=== PATIENT | male | born 1985 | race African-American/Black ===

== ENCOUNTER 2018-01-03 11:31 | Emergency (ER) | payer OTHER ==
[2018-01-03] MEDS: IV NORMAL SALINE 1000ML BAG 1,000 ML IV (12:20)
[2018-01-03 12:27] LABS: ADD MAN DIFF? NO
[2018-01-03] MEDS ORDERED: IOHEXOL 300 MG/ML 100ML VIAL. IV (12:30)
[2018-01-03] MEDS: ONDANSETRON PF 4 MG/2 ML VIAL. IV ×2 (12:30→15:00)
[2018-01-03] MEDS ORDERED: CONTRAST GIVEN. MC (12:30)
[2018-01-03 12:38] LABS: BASO % 0 % (0-3); EOS # 0.1 x10^3/uL (0.0-0.7); EOS % 1 % (0-3); HEMATOCRIT 45.6 % (39.0-53.0); HEMOGLOBIN 15.8 g/dL (13.0-17.5); LYMPH # 2.8 x10^3/uL (1.0-4.8); LYMPH % 31 % (24-48); MEAN CORPUSCULAR HEMOGLOBIN 31 pg (25-35); MEAN CORPUSCULAR HGB CONC 35 g/dL (31-37); MEAN CORPUSCULAR VOLUME 91 fL (79-100); MONO # 0.8 x10^3/uL (0.0-1.1); MONO % 9 % (0-9); NEUT # 5.4 x10^3uL (1.8-7.7); NEUT % 59 % (31-73); PLATELET COUNT 256 x10^3/uL (140-400); RED BLOOD COUNT 5.02 x10^6/uL (4.30-5.70); RED CELL DISTRIBUTION WIDTH 13.9 % (11.5-14.5); WHITE BLOOD COUNT 9.2 x10^3/uL (4.0-11.0)
[2018-01-03 12:43] LABS: ANION GAP 9 (6-14); BLOOD UREA NITROGEN 15 mg/dL (8-26); BUN/CREATININE RATIO 14 (6-20); CALCIUM 9.3 mg/dL (8.5-10.1); CARBON DIOXIDE 29 mmol/L (21-32); CHLORIDE 104 mmol/L (98-107); CREATININE 1.1 mg/dL (0.7-1.3); GFR 94.5; GLUCOSE 99 mg/dL (70-99); POTASSIUM 3.2 mmol/L (3.5-5.1); SODIUM 142 mmol/L (136-145)
[2018-01-03 12:51] LABS: ALK PHOS 56 U/L (46-116); ALT (SGPT) 37 U/L (16-63); AST (SGOT) 15 U/L (15-37); LIPASE 275 U/L (73-393); TOTAL BILIRUBIN 0.2 mg/dL (0.2-1.0)
[2018-01-03 12:55] LABS: FREE T4 1.36 ng/dL (0.76-1.46)
[2018-01-03 12:55] LABS: THYROID STIM HORMONE (TSH) 2.267 uIU/mL (0.358-3.74)
[2018-01-03 14:59] LABS: BILIRUBIN,URINE NEGATIVE (NEG); CLARITY,URINE CLEAR; COLOR,URINE YELLOW; GLUCOSE,URINE NEGATIVE (NEG); NITRITE,URINE NEGATIVE (NEG); PH,URINE 8.5; PROTEIN,URINE NEGATIVE (NEG-TRACE); UROBILINOGEN,URINE 0.2 mg/dL (0.2 mg/dL)
[2018-01-03 15:11] LABS: BARBITURATES NEG (NEG); BENZODIAZEPINES NEG (NEG); CANNABINOIDS POS (NEG); COCAINE NEG (NEG); METHADONE NEG (NEG); OPIATES NEG (NEG); PHENCYCLIDINE NEG (NEG)
[2018-01-03 15:20] LABS: AMPHETAMINE/METHAMPHETAMINE NEG (NEG); ETHANOL, URINE NEG (NEG)
[2018-01-03 15:54] LABS: BACTERIA,URINE 0 /HPF (0-FEW); RBC,URINE 0 /HPF (0-2); SQUAMOUS EPITHELIAL CELL,UR OCC /LPF; WBC,URINE OCC /HPF (0-4)
== END 2018-01-03 17:10 | disposition home or self-care (01) ==
LOC: ER 11:31
DX: K52.9 Noninfective gastroenteritis and colitis, unspecified (principal); F17.210 Nicotine dependence, cigarettes, uncomplicated
CPT/HCPCS: 36415; 74177; 80053; 80307; 81001; 83690; 84439; 84443; 85025; 93005; 96361; 96374; 96376; 99285-25; J2405; J7030